=== PATIENT | female | born 1960 | race Caucasian/White ===

== ENCOUNTER → 2016-06-10 | Outpatient (CLI) | payer OTHER ==
[~2016-06-10] MED LIST: ALLEGRA D 12 HO1 TER PO; AMBIEN5 M1 PO; ESTRACE0.5 MG PO; FOLBIC RF 2 MG-1 TAB PO; IRON160 MG PO; LEVOTHYROXIN0.075 M1 PO; LEVOTHYROXIN0.112 M1 PO; LEVOTHYROXINE0.15 MG PO; ZOLOFT 50MG50 MG PO
[2016-06-10 10:45] VITALS: BP 124/78
== END ==
LOC: RAD 09:51
DX: Z01.818 Encounter for other preprocedural examination (principal); M16.11 Unilateral primary osteoarthritis, right hip

== ENCOUNTER → 2016-06-15 | Outpatient (CLI) | payer OTHER | LOC: RAD 12:54 | DX: R93.8 Abnormal findings on diagnostic imaging of other specified body structures (principal) | CPT/HCPCS: Q9967 ==

== ENCOUNTER → 2017-05-08 | Outpatient (CLI) | payer OTHER ==
[2016-06-10 10:45] VITALS: BP 124/78
[2017-05-08 08:19] LABS: EOS # 0.1 (0.04-0.40); EOS % 1.9 % (1.0-5.0); HEMATOCRIT 43.9 % (37.0-47.0); LYMPH# 1.5 (1.50-4.00); MEAN CELL VOLUME 91 fl (78-100); MEAN CORPUSCULAR HEMOGLOBIN 29 pg (27-31); MEAN CORPUSCULAR HGB CONC 32 g/dL (33-37); MONO # 0.4 (0.20-0.80); NEU # 4.4 (1.40-6.50); PLATELET COUNT 238 K/mm3 (130-400); RED BLOOD COUNT 4.84 M/mm3 (4.10-5.30); RED CELL DISTRIBUTION WIDTH 13.3 % (11.5-14.5); WHITE BLOOD COUNT 6.4 K/mm3 (4.8-10.8)
[2017-05-08 08:34] LABS: BUN/CREATININE RATIO 18.6 (6.0-26.0); CALCIUM 9.2 mg/dL (8.4-10.2); POTASSIUM 3.8 mmol/L (3.6-5.0); TOTAL BILIRUBIN 0.3 mg/dL (0.2-1.3)
[2017-05-08 09:24] LABS: ERYTHROCYTE SEDIMENTATION RATE 1 mm/hr (0-30)
[2017-05-08 22:08] LABS: C-REACTIVE PROTEIN XXX
[2017-05-09 13:18] LABS: LYME DISEASE ANTIBODIES 2.13 (Negative)
== END ==
LOC: LAB 08:04
PROVIDERS: Internal Medicine
DX: Z00.00 Encounter for general adult medical examination without abnormal findings (principal); E61.1 Iron deficiency; E03.4 Atrophy of thyroid (acquired); Z12.11 Encounter for screening for malignant neoplasm of colon

== ENCOUNTER → 2017-07-03 | Outpatient (CLI) | payer OTHER ==
[2016-06-10 10:45] VITALS: BP 124/78
== END ==
LOC: LAB 08:27
DX: K90.89 Other intestinal malabsorption (principal); E55.9 Vitamin D deficiency, unspecified

== ENCOUNTER → 2017-09-21 | Outpatient (CLI) | payer OTHER ==
[2016-06-10 10:45] VITALS: BP 124/78
== END ==
LOC: RAD 09:02 → MAMMO 09:15 → RAD 09:15
DX: Z13.820 Encounter for screening for osteoporosis (principal); M85.80 Other specified disorders of bone density and structure, unspecified site

== ENCOUNTER → 2018-06-19 | Outpatient (CLI) | payer OTHER ==
[2016-06-10 10:45] VITALS: BP 124/78
[2018-06-19 09:44] LABS: EOS # 0.2 (0.04-0.40); EOS % 2.4 % (1.0-5.0); HEMATOCRIT 45.1 % (37.0-47.0); HEMOGLOBIN 14.7 g/dL (12.5-16.0); LYMPH# 1.4 (1.50-4.00); MEAN CELL VOLUME 90 fl (78-100); MEAN CORPUSCULAR HEMOGLOBIN 30 pg (27-31); MEAN CORPUSCULAR HGB CONC 33 g/dL (33-37); MEAN PLATELET VOLUME 11.4 fl (7.4-10.4); MONO # 0.5 (0.20-0.80); NEU # 4.3 (1.40-6.50); PLATELET COUNT 243 K/mm3 (130-400); RED BLOOD COUNT 4.99 M/mm3 (4.10-5.30); RED CELL DISTRIBUTION WIDTH 12.8 % (11.5-14.5); WHITE BLOOD COUNT 6.3 K/mm3 (4.8-10.8)
[2018-06-19 12:21] LABS: ERYTHROCYTE SEDIMENTATION RATE 6 mm/hr (0-30)
== END ==
LOC: LAB 08:46
PROVIDERS: Internal Medicine
DX: Z00.00 Encounter for general adult medical examination without abnormal findings (principal); Z12.11 Encounter for screening for malignant neoplasm of colon; E61.1 Iron deficiency; E03.4 Atrophy of thyroid (acquired)

== ENCOUNTER → 2018-10-08 | Outpatient (CLI) | payer OTHER ==
[2016-06-10 10:45] VITALS: BP 124/78
== END ==
LOC: LAB 13:33
DX: E03.9 Hypothyroidism, unspecified (principal)

== ENCOUNTER 2019-05-31 08:00 | Outpatient (RCR) | payer OTHER ==
[2016-06-10 10:45] VITALS: BP 124/78
== END 2019-05-31 08:30 | disposition still patient (30) ==
LOC: PT 08:00
DX: M25.551 Pain in right hip (principal); Z96.641 Presence of right artificial hip joint

== ENCOUNTER → 2020-06-17 | Outpatient (CLI) | payer OTHER ==
[2016-06-10 10:45] VITALS: BP 124/78
[2020-06-17 08:07] LABS: EOS # 0.1 (0.04-0.40); EOS % 2.1 % (1.0-5.0); HEMATOCRIT 45.9 % (37.0-47.0); HEMOGLOBIN 14.7 g/dL (12.5-16.0); LYMPH# 1.4 (1.50-4.00); MEAN CELL VOLUME 90 fl (78-100); MEAN CORPUSCULAR HEMOGLOBIN 29 pg (27-31); MEAN CORPUSCULAR HGB CONC 32 g/dL (33-37); MEAN PLATELET VOLUME 10.3 fl (7.4-10.4); MONO # 0.6 (0.20-0.80); NEU # 4.7 (1.40-6.50); PLATELET COUNT 255 K/mm3 (130-400); RED CELL DISTRIBUTION WIDTH 13.1 % (11.5-14.5); WHITE BLOOD COUNT 6.8 K/mm3 (4.8-10.8)
[2020-06-17 08:16] LABS: POTASSIUM 4.2 mmol/L (3.5-5.1)
[2020-06-17 08:17] LABS: ALBUMIN 4.1 g/dL (3.5-5.0)
[2020-06-17 08:18] LABS: CALCIUM 8.9 mg/dL (8.3-10.5)
[2020-06-17 08:19] LABS: TOTAL PROTEIN 6.8 g/dL (6.4-8.3)
[2020-06-17 08:21] LABS: TOTAL BILIRUBIN 0.4 mg/dL (0.2-1.2)
[2020-06-17 09:32] LABS: ERYTHROCYTE SEDIMENTATION RATE 7 mm/hr (0-30)
== END ==
LOC: LAB 07:47
PROVIDERS: Internal Medicine
DX: Z00.00 Encounter for general adult medical examination without abnormal findings (principal)

== ENCOUNTER → 2020-06-23 | Outpatient (CLI) | payer OTHER ==
[2016-06-10 10:45] VITALS: BP 124/78
== END ==
LOC: LAB 11:57
DX: Z12.11 Encounter for screening for malignant neoplasm of colon (principal)

== ENCOUNTER → 2020-07-01 | Outpatient (CLI) | payer OTHER ==
[2016-06-10 10:45] VITALS: BP 124/78
== END ==
LOC: MAMMO 09:04
DX: Z12.31 Encounter for screening mammogram for malignant neoplasm of breast (principal)

== ENCOUNTER → 2021-09-10 | Outpatient (CLI) | payer OTHER ==
[2021-09-10 08:55] LABS: BASO # 0.05 K/mm3 (0.02-0.10); EOS # 0.21 K/mm3 (0.04-0.40); EOS % 2.7 % (1.0-5.0); HEMOGLOBIN 14.9 g/dL (12.5-16.0); LYMPH# 1.87 K/mm3 (1.50-4.00); MEAN CELL VOLUME 90 fl (78-100); MEAN CORPUSCULAR HEMOGLOBIN 29 pg (27-31); MEAN CORPUSCULAR HGB CONC 32 g/dL (33-37); MEAN PLATELET VOLUME 10.5 fl (7.4-10.4); MONO # 0.67 K/mm3 (0.20-0.80); NEU # 5.09 K/mm3 (1.40-6.50); PLATELET COUNT 260 K/mm3 (130-400); RED CELL DISTRIBUTION WIDTH 12.4 % (11.5-14.5); WHITE BLOOD COUNT 7.9 K/mm3 (4.8-10.8)
[2021-09-10 09:16] LABS: ALBUMIN 4.1 g/dL (3.4-4.8)
[2021-09-10 09:17] LABS: CALCIUM 9.4 mg/dL (8.3-10.5)
[2021-09-10 09:18] LABS: TOTAL PROTEIN 6.4 g/dL (6.2-8.1)
[2021-09-10 09:20] LABS: TOTAL BILIRUBIN 0.4 mg/dL (0.2-1.2)
[2021-09-10 10:01] LABS: ERYTHROCYTE SEDIMENTATION RATE 3 mm/hr (0-30)
== END ==
LOC: LAB 08:33
PROVIDERS: Internal Medicine
DX: Z00.00 Encounter for general adult medical examination without abnormal findings (principal); Z12.11 Encounter for screening for malignant neoplasm of colon; Z12.31 Encounter for screening mammogram for malignant neoplasm of breast; G47.01 Insomnia due to medical condition; F41.1 Generalized anxiety disorder

== ENCOUNTER → 2021-09-15 | Outpatient (CLI) | payer OTHER | LOC: MAMMO 09:59 | DX: Z12.31 Encounter for screening mammogram for malignant neoplasm of breast (principal) ==

== ENCOUNTER → 2021-12-22 | Outpatient (CLI) | payer OTHER | LOC: RAD 15:57 | DX: M79.671 Pain in right foot (principal) ==

== ENCOUNTER → 2023-01-31 | Outpatient (CLI) | payer OTHER | LOC: RAD 08:58 | DX: M25.511 Pain in right shoulder (principal) ==

== ENCOUNTER → 2023-05-02 | Outpatient (CLI) | payer OTHER ==
[2023-05-02 16:45] LABS: BASO # 0.05 K/mm3 (0.02-0.10); EOS # 0.18 K/mm3 (0.04-0.40); EOS % 2.5 % (1.0-5.0); HEMATOCRIT 41.1 % (37.0-47.0); HEMOGLOBIN 13.2 g/dL (12.5-16.0); LYMPH# 1.98 K/mm3 (1.50-4.00); MEAN CELL VOLUME 90 fl (78-100); MEAN CORPUSCULAR HEMOGLOBIN 29 pg (27-31); MEAN CORPUSCULAR HGB CONC 32 g/dL (33-37); MEAN PLATELET VOLUME 9.9 fl (7.4-10.4); MONO # 0.42 K/mm3 (0.20-0.80); NEU # 4.42 K/mm3 (1.40-6.50); PLATELET COUNT 268 K/mm3 (130-400); RED BLOOD COUNT 4.59 M/mm3 (4.10-5.30); RED CELL DISTRIBUTION WIDTH 12.5 % (11.5-14.5); WHITE BLOOD COUNT 7.1 K/mm3 (4.8-10.8)
[2023-05-02 16:50] LABS: ALBUMIN 4.4 g/dL (3.4-4.8)
[2023-05-02 16:51] LABS: URINE APPEARANCE CLEAR (CLEAR); URINE BILIRUBIN NEGATIVE (NEGATIVE); URINE BLOOD NEGATIVE (NEGATIVE); URINE COLOR YELLOW (YELLOW); URINE GLUCOSE NEGATIVE (NEGATIVE); URINE KETONE NEGATIVE (NEGATIVE); URINE LEUKOCYTE ESTERASE NEGATIVE (NEGATIVE); URINE NITRATE NEGATIVE (NEGATIVE); URINE PROTEIN(semi-quant) NEGATIVE (NEGATIVE); URINE WBC 0-1 /hpf (0-3)
[2023-05-02 16:52] LABS: CALCIUM 9.4 mg/dL (8.3-10.5)
[2023-05-02 16:53] LABS: TOTAL PROTEIN 7.1 g/dL (6.2-8.1)
[2023-05-02 16:59] LABS: MAGNESIUM 2.12 mg/dL (1.60-2.60)
[2023-05-02 17:30] LABS: TOTAL BILIRUBIN 0.32 mg/dL (0.2-1.2)
== END ==
LOC: LAB 16:26
PROVIDERS: Internal Medicine
DX: I10 Essential (primary) hypertension (principal)

== ENCOUNTER → 2023-06-22 | Outpatient (CLI) | payer OTHER | LOC: LAB 09:31 | DX: E03.4 Atrophy of thyroid (acquired) (principal) ==

== ENCOUNTER → 2023-09-25 | Outpatient (CLI) | payer OTHER ==
[2023-09-25 11:19] LABS: ALBUMIN 4.1 g/dL (3.4-4.8)
[2023-09-25 11:21] LABS: TOTAL PROTEIN 6.4 g/dL (6.2-8.1)
[2023-09-25 11:23] LABS: TOTAL BILIRUBIN 0.5 mg/dL (0.2-1.2)
[2023-09-25 11:35] LABS: BASO # 0.03 K/mm3 (0.02-0.10); EOS % 2.1 % (1.0-5.0); HEMOGLOBIN 12.1 g/dL (12.5-16.0); LYMPH# 1.37 K/mm3 (1.50-4.00); MEAN CELL VOLUME 89 fl (78-100); MEAN CORPUSCULAR HEMOGLOBIN 29 pg (27-31); MEAN CORPUSCULAR HGB CONC 33 g/dL (33-37); MEAN PLATELET VOLUME 9.8 fl (7.4-10.4); MONO # 0.41 K/mm3 (0.20-0.80); NEU # 2.85 K/mm3 (1.40-6.50); PLATELET COUNT 232 K/mm3 (130-400); RED BLOOD COUNT 4.18 M/mm3 (4.10-5.30); RED CELL DISTRIBUTION WIDTH 12.9 % (11.5-14.5); WHITE BLOOD COUNT 4.8 K/mm3 (4.8-10.8)
[2023-09-26 00:36] LABS: T3 FREE 2.4 pg/mL (1.7-3.7)
== END ==
LOC: LAB 11:03
PROVIDERS: Internal Medicine
DX: Z00.00 Encounter for general adult medical examination without abnormal findings (principal)

== ENCOUNTER → 2023-11-01 | Outpatient (CLI) | payer OTHER | LOC: MAMMO 07:38 | DX: Z12.31 Encounter for screening mammogram for malignant neoplasm of breast (principal) ==

== ENCOUNTER → 2024-01-25 | Outpatient (CLI) | payer OTHER ==
[2024-01-25 09:19] LABS: ALBUMIN 4.1 g/dL (3.4-4.8)
[2024-01-25 09:20] LABS: CALCIUM 9.2 mg/dL (8.3-10.5)
[2024-01-25 09:21] LABS: TOTAL PROTEIN 6.4 g/dL (6.2-8.1)
[2024-01-25 09:23] LABS: TOTAL BILIRUBIN 0.3 mg/dL (0.2-1.2)
== END ==
LOC: LAB 08:32
PROVIDERS: Internal Medicine
DX: E78.2 Mixed hyperlipidemia (principal)

== ENCOUNTER → 2024-03-19 | Outpatient (CLI) | payer OTHER | LOC: RAD 07:09 | DX: M71.22 Synovial cyst of popliteal space [Baker], left knee (principal) ==

== ENCOUNTER → 2024-05-07 | Outpatient (CLI) | payer OTHER | LOC: RAD 10:16 | DX: M79.671 Pain in right foot (principal) ==

== ENCOUNTER → 2024-05-31 | Outpatient (CLI) | payer OTHER | LOC: RAD 12:26 | DX: M47.816 Spondylosis without myelopathy or radiculopathy, lumbar region (principal); M47.817 Spondylosis without myelopathy or radiculopathy, lumbosacral region; M43.16 Spondylolisthesis, lumbar region; M48.061 Spinal stenosis, lumbar region without neurogenic claudication; R10.31 Right lower quadrant pain; M25.551 Pain in right hip ==